=== PATIENT | male | born 1995 | race Hispanic/Latino ===

== ENCOUNTER 2025-05-28 15:03 | Emergency (ER) | payer OTHER ==
[~2025-05-28] VITALS: Ht 172.7 cm; Wt 83.9 kg
[2025-05-28 15:28] VITALS: BP 132/89; PULSE 87; RESP 16; TEMP 97.8; O2SAT 99
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
== END 2025-05-28 16:05 | disposition home or self-care (01) ==
LOC: EDH 15:03
DX: R51.9 Headache, unspecified (principal); V89.2XXA Person injured in unspecified motor-vehicle accident, traffic, initial encounter; Y93.89 Activity, other specified; Y92.410 Unspecified street and highway as the place of occurrence of the external cause; Y99.8 Other external cause status
CPT/HCPCS: 99282